=== PATIENT | male | born 1960 | race Caucasian/White ===

== ENCOUNTER 2017-05-06 02:43 | Emergency (ER) | payer BC ==
[~2017-05-06] VITALS: Ht 170.2 cm; Wt 80.8 kg
[2017-05-06 02:51] VITALS: BP 108/70; PULSE 89; RESP 18; TEMP 98.8; O2SAT 96
[2017-05-06] MEDS ORDERED: ONDANSETRON HCL 4 MG/2 ML VIAL IVP ONE (03:15)
[2017-05-06 03:25] VITALS: BP 108/70; PULSE 89; RESP 18; TEMP 98.8; O2SAT 96
[2017-05-06 03:39] VITALS: BP 135/84; PULSE 98; RESP 18; O2SAT 96
[2017-05-06] MEDS ORDERED: KETOROLAC TROMETHAMINE 30 MG/ML (IVP) VIAL IV PUSH ONE (03:45)
[2017-05-06] MEDS ORDERED: SODIUM CHLOR 0.9% 1000 ML INJ 1,000 ML IV ONE (03:45)
[2017-05-06 03:48] LABS: AUTOMATED NEUTROPHIL # 13.4 TH/MM3 (1.8-7.7); BASOPHIL # 0.1 TH/MM3 (0-0.2); BASOPHIL % 0.8 % (0.0-2.0); EOSINOPHIL % 0.3 % (0.0-4.0); HEMOGLOBIN 14.1 GM/DL (13.0-17.0); LYMPH % 5.1 % (9.0-44.0); LYMPHOCYTE # 0.8 TH/MM3 (1.0-4.8); MEAN CELL VOLUME 86.6 FL (80.0-100.0); MEAN CORPUSCULAR HEMOGLOBIN 29.1 PG (27.0-34.0); MEAN CORPUSCULAR HGB CONC 33.6 % (32.0-36.0); MEAN PLATELET VOLUME 9.2 FL (7.0-11.0); MONO % 7.8 % (0.0-8.0); MONOCYTE # 1.2 TH/MM3 (0-0.9); PLATELET COUNT 244 TH/MM3 (150-450); RED BLOOD COUNT 4.84 MIL/MM3 (4.50-5.90); RED CELL DISTRIBUTION WIDTH 12.5 % (11.6-17.2); WHITE BLOOD COUNT 15.5 TH/MM3 (4.0-11.0)
[2017-05-06 03:49] LABS: BILIRUBIN, URINE NEG (NEG); BLOOD, URINE NEG (NEG); GLUCOSE,URINE NEG (NEG); KETONE, URINE TRACE mg/dL (NEG); NITRITE,URINE NEG (NEG); PH, URINE 7.5 (5.0-8.5); URINE LEUKOCYTE ESTERASE NEG (NEG)
[2017-05-06] MEDS ORDERED: IOHEXOL 350 MG/ML 10 ML VIAL (for RAD DIAG) IVCONTRAST ONE (03:50)
[2017-05-06 04:00] LABS: RBC, URINE 0-3 /hpf (0-3); SQUAMOUS EPITHELIAL CELL URINE 0-5 /hpf (0-5); URINE COLOR YELLOW (YELLW/STRAW); WBC, URINE 0-2 /hpf (0-5)
[2017-05-06 04:02] LABS: CHLORIDE 106 MEQ/L (98-107); SODIUM (NA) 137 MEQ/L (136-145)
[2017-05-06 04:05] LABS: CALCIUM 8.6 MG/DL (8.5-10.1)
[2017-05-06 04:06] LABS: ALBUMIN 3.3 GM/DL (3.4-5.0); BLOOD UREA NITROGEN 20 MG/DL (7-18); GLUCOSE,RANDOM 158 MG/DL (74-106); LIPASE 127 U/L (73-393)
[2017-05-06 04:09] LABS: ALT (GPT) 32 U/L (12-78); AST (GOT) 27 U/L (15-37); CREATININE 0.98 MG/DL (0.60-1.30); GLOMERULAR FILTRATION RATE 80 ML/MIN (>89)
[2017-05-06 04:11] LABS: TOTAL BILIRUBIN ADULT 0.8 MG/DL (0.2-1.0); TOTAL PROTEIN 7.6 GM/DL (6.4-8.2)
[2017-05-06 04:12] LABS: ALKALINE PHOSPHATASE 95 U/L (45-117)
--- NOTE | 2017-05-06 04:12 | PD ---
HPI Chief Complaint: GI Complaint Time Seen by Provider: 03:32 Travel History International Travel<30 days: No Contact w/Intl Traveler<30days: No Traveled to known affect area: No History of Present Illness HPI Patient is a 56-year-old male presents emergency department for evaluation of nausea vomiting one episode of diarrhea. Nonbloody nonbilious stools and nonbloody nonbilious vomiting. Patient states suspect having some generalized abdominal cramping for the past 4 days. No fevers no other sick contacts. Initially he thought he had gastroenteritis but when symptoms did not ileana decided to come in and be seen. Has not tried anything for her symptoms prior to arrival. No other previous symptoms lasting this long in the past. No history of diverticulitis or diverticulosis. No fevers no cough no congestion no dysuria. Patient states the symptoms are gradually worsening, cramping, mild to moderate, associated signs symptoms and context as above. PFSH Past Medical History Medical History: Denies Significant Hx ?: Not Social History Alcohol Use: Yes (2-3 drinks/daily) Tobacco Use: No Substance Use: No Allergies-Medications (Allergen,Severity, Reaction): Coded Allergies: No Known Allergies (Unverified , 05/06/17) Reported Meds & Prescriptions Reported Meds & Active Scripts Active Zofran (Ondansetron HCl) 4 Mg Tab 4 Mg PO Q6HR PRN Bentyl (Dicyclomine HCl) 10 Mg Cap 10 Mg PO TID PRN Flagyl (Metronidazole) 500 Mg Tab 500 Mg PO BID 7 Days Cipro (Ciprofloxacin HCl) 500 Mg Tab 500 Mg PO BID 7 Days Review of Systems Except as stated in HPI: all other systems reviewed are Neg Physical Exam Narrative GENERAL: Well-developed well-nourished no obvious distress SKIN: Focused skin assessment warm/dry. HEAD: Atraumatic. Normocephalic. EYES: Pupils equal and round. No scleral icterus. No injection or drainage. ENT: No nasal bleeding or discharge. Mucous membranes pink and moist. NECK: Trachea midline. No JVD. CARDIOVASCULAR: Regular rate and rhythm. No murmur appreciated. RESPIRATORY: No accessory muscle use. Clear to auscultation. Breath sounds equal bilaterally. GASTROINTESTINAL: Abdomen soft, non-tender, nondistended. Hepatic and splenic margins not palpable. No rebound no percussive tenderness, mild tenderness to palpation. Psoas and obturator signs negative. On scene sign negative. There is a small umbilical hernia which was reduced easily. MUSCULOSKELETAL: No obvious deformities. No clubbing. No cyanosis. No edema. NEUROLOGICAL: Awake and alert. No obvious cranial nerve deficits. Motor grossly within normal limits. Normal speech. PSYCHIATRIC: Appropriate mood and affect; insight and judgment normal. Data Data Last Documented VS Vital Signs Date Time Temp Pulse Resp B/P (MAP) Pulse Ox O2 Delivery O2 Flow Rate FiO2 05/06/17 06:37 82 18 135/78 (97) 100 05/06/17 06:00 Room Air 05/06/17 03:25 98.8 Orders Orders Complete Blood Count With Diff (05/06/17 03:12) Comprehensive Metabolic Panel (05/06/17 03:12) Lipase (05/06/17 03:12) Urinalysis - C+S If Indicated (05/06/17 03:12) Iv Access Insert/Monitor (05/06/17 03:12) Ecg Monitoring (05/06/17 03:12) Oximetry (05/06/17 03:12) Ondansetron Inj (Zofran Inj) (05/06/17 03:15) Electrocardiogram (05/06/17 03:12) Sodium Chlor 0.9% 1000 Ml Inj (Ns 1000 M (05/06/17 03:45) Ketorolac Inj (Toradol Inj) (05/06/17 03:45) Ct Abd/Pel W Iv Contrast(Rout) (05/06/17 ) Iohexol 350 Inj (Omnipaque 350 Inj) (05/06/17 03:50) Ciprofloxacin (Cipro) (05/06/17 05:15) Metronidazole (Flagyl) (05/06/17 05:15) Ed Discharge Order (05/06/17 06:32) Labs Laboratory Tests Test 05/06/17 03:30 White Blood Count 15.5 TH/MM3 Red Blood Count 4.84 MIL/MM3 Hemoglobin 14.1 GM/DL Hematocrit 42.0 % Mean Corpuscular Volume 86.6 FL Mean Corpuscular Hemoglobin 29.1 PG Mean Corpuscular Hemoglobin Concent 33.6 % Red Cell Distribution Width 12.5 % Platelet Count 244 TH/MM3 Mean Platelet Volume 9.2 FL Neutrophils (%) (Auto) 86.0 % Lymphocytes (%) (Auto) 5.1 % Monocytes (%) (Auto) 7.8 % Eosinophils (%) (Auto) 0.3 % Basophils (%) (Auto) 0.8 % Neutrophils # (Auto) 13.4 TH/MM3 Lymphocytes # (Auto) 0.8 TH/MM3 Monocytes # (Auto) 1.2 TH/MM3 Eosinophils # (Auto) 0.0 TH/MM3 Basophils # (Auto) 0.1 TH/MM3 CBC Comment DIFF FINAL Differential Comment Urine Color YELLOW Urine Turbidity CLEAR Urine pH 7.5 Urine Specific [place] 1.022 Urine Protein NEG mg/dL Urine Glucose (UA) NEG mg/dL Urine Ketones TRACE mg/dL Urine Occult Blood NEG Urine Nitrite NEG Urine Bilirubin NEG Urine Leukocyte Esterase NEG Urine RBC 0-3 /hpf Urine WBC 0-2 /hpf Urine Squamous Epithelial Cells 0-5 /hpf Urine Bacteria NONE /hpf Microscopic Urinalysis Comment CULT NOT INDICATED Blood Urea Nitrogen 20 MG/DL Creatinine 0.98 MG/DL Random Glucose 158 MG/DL Total Protein 7.6 GM/DL Albumin 3.3 GM/DL Calcium Level 8.6 MG/DL Alkaline Phosphatase 95 U/L Aspartate Amino Transf (AST/SGOT) 27 U/L Alanine Aminotransferase (ALT/SGPT) 32 U/L Total Bilirubin 0.8 MG/DL Sodium Level 137 MEQ/L Potassium Level 4.0 MEQ/L Chloride Level 106 MEQ/L Carbon Dioxide Level 24.0 MEQ/L Anion Gap 7 MEQ/L Estimat Glomerular Filtration Rate 80 ML/MIN Lipase 127 U/L MDM Medical Decision Making Medical Screen Exam Complete: Yes Emergency Medical Condition: Yes Differential Diagnosis Obstruction, ileus, diverticulitis, diverticulosis, acute abdomen unlikely. Narrative Course Patient roomed emerged department, appears well, abdomen is fairly benign but only minimally tender. CAT scan of the abdomen indicated is quite cryptic nature of his pain. Shows the following results: Last 24 hours Impressions Abdomen/Pelvis CT 05/06/17 0000 Signed Impressions: Service Date/Time: Saturday, May 06, 2017 04:05 - CONCLUSION: 1. There is focal inflammatory changes with some thickening involving the bowel wall of the mid sigmoid colon suggestive of focal diverticulitis. No free fluid or loculated fluid collections are demonstrated. A few mildly dilated loops of small bowel are noted adjacent to the diverticulitis suggestive of a mild ileus. 2. Multiple benign-appearing hepatic cysts are seen throughout the liver. Adebayo Zimmerman MD Patient was counseled, he is able to tolerate by mouth antibiotics and by mouth fluids and has maintained these in his stomach for over an hour, counseled extensively and offered observation status in the hospital but he feels well enough to go home. Discussed he needs to follow-up with his primary care physician. He had a colonoscopy 5 years ago and was cleared until the age of 62. Discussed at length returned ED criteria symptomatically management home. Diagnosis Primary Impression: Diverticulitis Med/Other Pt SpecificInfo: Prescription(s) given Scripts Ondansetron (Zofran) 4 Mg Tab 4 MG PO Q6HR Y for NAUSEA OR VOMITING, #20 TAB 0 Refills Prov: Rhett Reese MD 05/06/17 Dicyclomine (Bentyl) 10 Mg Cap 10 MG PO TID Y for ABDOMINAL CRAMPING, #20 CAP 0 Refills Prov: Rhett Reese MD 05/06/17 Metronidazole (Flagyl) 500 Mg Tab 500 MG PO BID for Infection for 7 Days, #14 TAB 0 Refills Prov: Rhett Reese MD 05/06/17 Ciprofloxacin (Cipro) 500 Mg Tab 500 MG PO BID for Infection for 7 Days, #14 TAB 0 Refills Prov: Rhett Reese MD 05/06/17 Disposition: 01 DISCHARGE HOME Condition: Stable Rhett Reese MD May 06, 2017 04:12
[2017-05-06 04:50] VITALS: BP 135/83; PULSE 87; RESP 18; O2SAT 96
--- NOTE | 2017-05-06 04:56 | RADRPT ---
EXAM DATE/TIME: 05/06/2017 04:05 [facility] COMPARISON: No previous studies available for comparison. INDICATIONS : Nausea and vomiting for 4 days IV CONTRAST: 96 cc Omnipaque 350 (iohexol) IV ORAL CONTRAST: No oral contrast ingested. RADIATION DOSE: 10.00 CTDIvol (mGy) MEDICAL HISTORY : None SURGICAL HISTORY : None. ENCOUNTER: Initial ACUITY: 4 - 6 days PAIN SCALE: LOCATION: abdomen TECHNIQUE: Volumetric scanning of the abdomen and pelvis was performed. Using automated exposure control and ad justment of the mA and/or kV according to patient size, radiation dose was kept as low as reasonably achievable to obtain optimal diagnostic quality images. DICOM format image data is available electro nically for review and comparison. FINDINGS: LOWER LUNGS: The visualized lower lungs are clear. LIVER: Homogeneous density. There is no dilation of the biliary tree. No calcified gallstones. There is se veral benign-appearing hepatic cysts throughout the liver. The largest cyst measures 2.9 cm in the po sterior right lobe. There is a 1.5 cm cyst in the left lobe. There is some mild fatty infiltration th roughout the liver. SPLEEN: Normal size without lesion. PANCREAS: Within normal limits. KIDNEYS: Normal in size and shape. There is no mass, stone or hydronephrosis. ADRENAL GLANDS: Within normal limits. VASCULAR: There is no aortic aneurysm. BOWEL/MESENTERY: Bowel gas pattern is within normal limits. There is some focal inflammation and thickening involving the mid sigmoid colon. There are some scattered diverticula throughout the sigmoid colon. No free flu id or loculated fluid collections are demonstrated. There is stool throughout the colon. There are fe w mildly dilated small bowel loops. The appendix is unremarkable. ABDOMINAL WALL: Within normal limits. RETROPERITONEUM: There is no lymphadenopathy. A few nonspecific lymph nodes are seen in the para-aortic area at the le berenice of the kidneys. BLADDER: No wall thickening or mass. REPRODUCTIVE: Within normal limits. INGUINAL: There is no lymphadenopathy. There appears to be a left inguinal hernia containing mesenteric fat. MUSCULOSKELETAL: Within normal limits for patient age. CONCLUSION: 1. There is focal inflammatory changes with some thickening involving the bowel wall of the mid sigmo id colon suggestive of focal diverticulitis. No free fluid or loculated fluid collections are demonst rated. A few mildly dilated loops of small bowel are noted adjacent to the diverticulitis suggestive of a mild ileus. 2. Multiple benign-appearing hepatic cysts are seen throughout the liver. Adebayo Zimmerman MD on May 06, 2017 at 4:46 Board Certified Radiologist. This report was verified electronically.
[2017-05-06] MEDS ORDERED: metroNIDAZOLE 500 MG TAB PO ONE (05:15)
[2017-05-06] MEDS ORDERED: CIPROFLOXACIN 500 MG TAB PO ONE (05:15)
[2017-05-06 06:00] VITALS: BP 126/78; PULSE 83; RESP 18; O2SAT 97
[2017-05-06] MEDS ORDERED: METR-1 PO (06:32)
[2017-05-06] MEDS ORDERED: DICY10 PO (06:32)
[2017-05-06] MEDS ORDERED: ZOFR4TAB PO (06:32)
[2017-05-06] MEDS ORDERED: CIPR-9 PO (06:32)
[2017-05-06 06:37] VITALS: BP 135/78
--- NOTE | 2017-05-06 14:20 | EKG ---
Date Performed: 05/06/2017 Time Performed: 03:30:47 PTAGE: 56 years EKG: Sinus rhythm POSSIBLE LEFT ATRIAL ENLARGEMENT POSSIBLE LEFT VENTRICULAR HYPERTROPHY NONSPECIFIC T-WAVE ABNORMALIT Y ABNORMAL ECG NO PREVIOUS TRACING DOCTOR: Ki Morrison Interpretating Date/Time 05/06/2017 14:19:09
== END 2017-05-06 07:01 | disposition home or self-care (01) ==
LOC: PHED 02:43
DX: K57.32 Diverticulitis of large intestine without perforation or abscess without bleeding (principal); R19.7 Diarrhea, unspecified; R94.31 Abnormal electrocardiogram [ECG] [EKG]
CPT/HCPCS: 74177; 80053; 81001; 83690; 85025; 93005; 96361; 96374; 96375; 99285; J1885; J2405; J7030; Q9967